=== PATIENT | male | born 1975 | race Caucasian/White ===

== ENCOUNTER → 2020-04-13 | Outpatient (CLI) | payer MEDICARE, MEDICAID ==
[2015-02-04 07:55] VITALS: BP 111/78
[~2020-04-13] MED LIST: PERM60CR11 TP
[2020-04-13 14:08] LABS: BARBITURATES NEG (NEG); BENZODIAZEPINES NEG (NEG); CANNABINOIDS NEG (NEG); COCAINE NEG (NEG); METHADONE NEG (NEG); OPIATES NEG (NEG); PHENCYCLIDINE NEG (NEG)
[2020-04-13 14:09] LABS: AMPHETAMINE/METHAMPHETAMINE NEG (NEG)
[2020-04-15 18:07] LABS: HCV ULTRA QUANT PCR 485000 IU/mL (.)
== END ==
LOC: LAB 11:25
PROVIDERS: ATTEND Internal Medicine Gastroenterology
DX: B19.20 Unspecified viral hepatitis C without hepatic coma (principal); E83.52 Hypercalcemia; Z91.19 Patient's noncompliance with other medical treatment and regimen
CPT/HCPCS: 36415; 80307; 86706; 87340; 87522; 87902

== ENCOUNTER → 2020-05-11 | Outpatient (CLI) | payer MEDICARE, MEDICAID ==
[2015-02-04 07:55] VITALS: BP 111/78
[~2020-05-11] MED LIST changes: +IOHEXOL 240 MG/ML 50ML VIAL. ONE; +IOHEXOL 300 MG/ML 75 ML VIAL. IV ONE; -PERM60CR11 TP
--- NOTE | 2020-05-11 14:48 | RAD ---
EXAM: CT Abdomen and Pelvis with IV contrast INDICATION: Reason: RIGHT LOWER ABD PAIN, HERNIA / Spl. Instructions: / History: TECHNIQUE: Multi-detector row CT images were acquired from the lung bases through the abdomen and pelvis with the use of IV contrast. Sagittal and coronal images were acquired from the transaxial data. All CT scans performed at this facility utilize dose optimization techniques as appropriate to the exam, including the following: Automated exposure control and adjustment of the mA and/or KV according to patient size (this includes techniques or standardized protocols for targeted exams where dose is indication/reason for exam). IV CONTRAST: Administered ORAL CONTRAST: Administered COMPARISON: None FINDINGS: LOWER CHEST: Unremarkable LIVER: Unremarkable BILIARY SYSTEM: Gallbladder is unremarkable. Bile ducts are not dilated. PANCREAS: Unremarkable SPLEEN: Unremarkable ADRENALS: Unremarkable KIDNEYS & URETERS: Unremarkable BLADDER: Unremarkable REPRODUCTIVE ORGANS: Unremarkable GASTROINTESTINAL: The stomach, small bowel, and colon are unremarkable. The appendix is normal. MESENTERY/PERITONEUM/RETROPERITONEUM: Unremarkable VASCULAR: Unremarkable LYMPH NODES: No adenopathy OSSEOUS & SOFT TISSUES: Bones are unremarkable. There is a fat and fluid containing right direct inguinal hernia best illustrated on coronal image 8 of series 3 and axial image 75 of series 2. This has a 1.5 cm wide neck. IMPRESSION: Small, 1.5 cm wide fat and fluid containing right direct inguinal hernia. Otherwise negative abdomen and pelvis CT Electronically signed by: Eugene Acosta MD (05/11/2020 2:45 PM) [id number]
== END ==
LOC: CT 08:46
PROVIDERS: ATTEND Internal Medicine Gastroenterology
DX: K40.90 Unilateral inguinal hernia, without obstruction or gangrene, not specified as recurrent (principal); K74.60 Unspecified cirrhosis of liver
CPT/HCPCS: 74177; Q9967

== ENCOUNTER 2020-07-18 09:15 | Emergency (ER) | payer MEDICARE, MEDICAID ==
[~2020-07-18] VITALS: Ht 180.3 cm; Wt 81.0 kg
[2020-07-18 09:21] VITALS: BP 146/79
[2020-07-18] MEDS ORDERED: PERM60CR11 TP (09:40)
--- NOTE | 2020-07-18 09:41 | PHYS DOC ---
Past History Past Medical History: Alcoholism, Bipolar, Schizophrenia, Other Additional Past Medical Histor: Hep C Past Surgical History: Other Additional Past Surgical Histo: Hernia Alcohol Use: Heavy Drug Use: Amphetamine, Marijuana, Methamphetamine General Adult EDM: Chief Complaint: MULTIPLE COMPLAINTS HPI: HPI: Patient is a 45-year-old male who is homeless, presented to ER for evaluation of bite on his head, alert and oriented body. Patient said he was staying at one of his friend how last week, he fell he was bitten by some insects. Patient said at night when he sleeps he feels like the insect crawling out of his skin. Patient denies suicidal ideation, denies homicidal ideation. Review of Systems: Review of Systems: Constitutional: Denies fever or chills Eyes: Denies change in visual acuity HENT: Denies nasal congestion or sore throat Respiratory: Denies cough or shortness of breath Cardiovascular: Denies chest pain or edema GI: Denies abdominal pain, nausea, vomiting, bloody stools or diarrhea : Denies dysuria Musculoskeletal: Denies back pain or joint pain Integument: Itchy skin rash Neurologic: Denies headache, focal weakness or sensory changes Endocrine: Denies polyuria or polydipsia Lymphatic: Denies swollen glands Psychiatric: Denies depression or anxiety Allergies: Allergies: Allergies Coded Allergies Type Severity Reaction Last Updated Verified risperidone Allergy Severe Swelling 02/04/15 No Physical Exam: PE: Constitutional: Well developed, well nourished, no acute distress, non-toxic appearance. [] HENT: Normocephalic, atraumatic, bilateral external ears normal, oropharynx moist, no oral exudates, nose normal. [] Eyes: PERRLA, EOMI, conjunctiva normal, no discharge. [] Neck: Normal range of motion, no tenderness, supple, no stridor. [] Cardiovascular:Heart rate regular rhythm, no murmur [] Lungs & Thorax: Bilateral breath sounds clear to auscultation [] Abdomen: Bowel sounds normal, soft, no tenderness, no masses, no pulsatile masses. [] Skin: Warm, dry, multiple scratch laird on neck, forehead, face, scalp bilateral hands and the inner part both knees. Back: No tenderness, no CVA tenderness. [] Extremities: No tenderness, no cyanosis, no clubbing, ROM intact, no edema. [] Neurologic: Alert and oriented X 3, normal motor function, normal sensory function, no focal deficits noted. [] Psychologic: Affect normal, judgement normal, mood normal. [] Current Patient Data: Vital Signs: Vital Signs Date Time Temp Pulse Resp B/P (MAP) Pulse Ox O2 Delivery O2 Flow Rate FiO2 07/18/20 09:21 98.1 100 20 146/79 (101) 99 Room Air EKG: EKG: [] Radiology/Procedures: Radiology/Procedures: [] Heart Score: Risk Factors: Risk Factors: DM, Current or recent (<one month) smoker, HTN, HLP, family history of CAD, obesity. Risk Scores: Score 0 - 3: 2.5% MACE over next 6 weeks - Discharge Home Score 4 - 6: 20.3% MACE over next 6 weeks - Admit for Clinical Observation Score 7 - 10: 72.7% MACE over next 6 weeks - Early Invasive Strategies Course & Med Decision Making: Course & Med Decision Making Pertinent Labs and Imaging studies reviewed. (See chart for details) [] Dragon Disclaimer: Dragon Disclaimer: This electronic medical record was generated, in whole or in part, using a voice recognition dictation system. Departure Departure: Impression: Primary Impression: Bed bug bite Disposition: 01 DC HOME SELF CARE/HOMELESS Condition: STABLE Referrals: PCP,NO (PCP) follow up with your doctor as needed Patient Instructions: Bedbugs Scripts Permethrin (ELIMITE) 60 Gm Cream..g. 1 TE TP ONCE for bedbugs, #60 GM 0 Refills massage into skin from head to soles of feet one time, leave on for 8-14 hour s then remove by thorough washing Prov: DIANN NELSON DO 07/18/20 DIANN NELSON DO Jul 18, 2020 09:41
== END 2020-07-18 09:47 | disposition home or self-care (01) ==
LOC: ER 09:15
DX: S10.91XA Abrasion of unspecified part of neck, initial encounter (principal); S00.81XA Abrasion of other part of head, initial encounter; S00.01XA Abrasion of scalp, initial encounter; S60.512A Abrasion of left hand, initial encounter; S60.511A Abrasion of right hand, initial encounter; S80.212A Abrasion, left knee, initial encounter; S80.211A Abrasion, right knee, initial encounter; F20.9 Schizophrenia, unspecified; F31.9 Bipolar disorder, unspecified; F10.20 Alcohol dependence, uncomplicated; Z88.8 Allergy status to other drugs, medicaments and biological substances; Y90.9 Presence of alcohol in blood, level not specified; W57.XXXA Bitten or stung by nonvenomous insect and other nonvenomous arthropods, initial encounter; Y93.89 Activity, other specified; Y92.89 Other specified places as the place of occurrence of the external cause; Y99.8 Other external cause status
CPT/HCPCS: 99282

== ENCOUNTER 2021-02-05 18:56 | Emergency (ER) | payer MEDICARE, MEDICAID ==
[~2021-02-05] VITALS: Ht 180.3 cm; Wt 78.0 kg
[~2021-02-05 18:56] MED LIST changes: -IOHEXOL 240 MG/ML 50ML VIAL. ONE; -IOHEXOL 300 MG/ML 75 ML VIAL. IV ONE; +PERM60CR11 TP
[2021-02-05 19:25] VITALS: BP 138/87
[2021-02-05] MEDS ORDERED: CEPHALEXIN 250 MG CAPSULE PO ONE (19:30)
[2021-02-05] MEDS ORDERED: CEPH500T PO (19:34)
--- NOTE | 2021-02-05 19:35 | PHYS DOC ---
Past History Past Medical History: Alcoholism, Bipolar, Schizophrenia, Other Additional Past Medical Histor: Hep C (RALEIGH SMITH APRN) Past Surgical History: Other Additional Past Surgical Histo: Hernia (RALEIGH SMITH APRN) Alcohol Use: Heavy Drug Use: Amphetamine, Marijuana, Methamphetamine (RALEIGH SMITH APRN) General Adult EDM: Chief Complaint: SKIN RASH/ABSCESS HPI: HPI: Patient is a 45-year-old male being seen in the ER for lesions to bilateral upper and lower extremities and face. Patient reports that these lesions started few days ago. He denies any exposures. He states that his friend told him that the lesions are because he does not shower. His rambling, he has an extensive psychiatric history, and admitted to meth use. Patient denies difficulty swallowing, shortness of breath, or fevers. (RALEIGH SMITH APRN) Review of Systems: Review of Systems: 14 body systems of the review of systems have been reviewed. See HPI for pertinent positive and negative responses, otherwise all other systems are negative, nonpertinent or noncontributory (RALEIGH SMITH APRN) Allergies: Allergies: Allergies Coded Allergies Type Severity Reaction Last Updated Verified risperidone Allergy Severe Swelling 02/04/15 No (RALEIGH SMITH APRN) Physical Exam: PE: Constitutional: Well developed, well nourished, no acute distress, non-toxic appearance, poor hygiene. [] HENT: Normocephalic, atraumatic, bilateral external ears normal, oropharynx moist, patient maintaining secretions, nose normal Eyes: PERRL, conjunctiva normal, no discharge. [] Neck: Normal range of motion, no stridor Cardiovascular: Normal peripheral perfusion Lungs & Thorax: Normal work of breathing, no tachypnea Skin: Warm, dry, several round papular lesions noted to bilateral upper and lower extremities as well as face. Several of the lesions have surrounding redness and warmth. It appears that patient has been scratching at the lesions as any of them have scabbing. Back: Normal range of motion Extremities: No tenderness, no cyanosis, no clubbing, ROM intact, no edema. [] Neurologic: Alert and oriented X 3, normal motor function, normal sensory function, no focal deficits noted. [] Psychologic: Affect normal, judgement normal, mood normal. [] (RALEIGH SMITH APRN) EKG: EKG: [] (RALEIGH SMITH APRN) Radiology/Procedures: Radiology/Procedures: [] (RALEIGH SMITH APRN) Heart Score: C/O Chest Pain: No Risk Factors: Risk Factors: DM, Current or recent (<one month) smoker, HTN, HLP, family history of CAD, obesity. Risk Scores: Score 0 - 3: 2.5% MACE over next 6 weeks - Discharge Home Score 4 - 6: 20.3% MACE over next 6 weeks - Admit for Clinical Observation Score 7 - 10: 72.7% MACE over next 6 weeks - Early Invasive Strategies (RALEIGH SMITH APRN) Course & Med Decision Making: Course & Med Decision Making Pertinent Labs and Imaging studies reviewed. (See chart for details) [] Patient is a 45-year-old male being seen in the ER for lesions to his bilateral upper, lower extremities and face. Patient admitted to methamphetamine use, it is likely that these lesions are picks as several of them are bleeding although patient denies picking at the lesions. Several of the lesions have surrounding redness and warmth, there is no streaking around these lesions. Patient is maintaining secretions, he is not hypoxic, nonlabored breathing and in no acute distress, afebrile. Patient treated with his first dose of an antibiotic in the ER. Patient discharged home with a prescription for an antibiotic. Patient advised to follow-up with his primary care provider. I discussed with patient all findings as well as the need to follow-up with PCP for further evaluation and treatment or return to the ER if any new or worsening symptoms. Strict return precautions were also discussed at length. Patient voiced understanding and agreement with the plan. Patient is hemodynamically stable at the time of disposition. (RALEIGH SMITH APRN) Dragon Disclaimer: Dragon Disclaimer: This electronic medical record was generated, in whole or in part, using a voice recognition dictation system. (RALEIGH SMITH APRN) Departure Departure: Impression: Primary Impression: Cellulitis Qualified Codes: L03.119 - Cellulitis of unspecified part of limb Disposition: HOME / SELF CARE / HOMELESS Condition: GOOD Referrals: PCP,NO (PCP) Patient Instructions: Skin Infections Additional Instructions: You were seen in the ER for lesions to your body. Several of the lesions have surrounding redness and warmth consistent with a skin infection. Keep these lesions clean and dry. You were treated with your first dose of an antibiotic in the ER. You are being discharged home with a prescription for antibiotic. Please start and finish it completely. You can take Tylenol/ibuprofen for any pain at home. Please stop picking at these lesions. Please follow-up with your primary care provider tomorrow regarding your ER visit. You can return to the ER if you develop worsening of your rash, difficulty swallowing, shortness of breath, fevers refractory to treatment. EMERGENCY DEPARTMENT GENERAL DISCHARGE INSTRUCTIONS Thank you for coming to [facility] (ED) today and trusting us with you care. We trust that you had a positivie experience in our Emergency Department. If you wish to speak to the department management, you may call the director at [phone]. YOUR FOLLOW UP INSTRUCTIONS ARE FOLLOWS: 1. Do you have a private Doctor? If you do not have a private doctor, please ask for a resource list of physicians or clinics that may be able to assist you with follow up care. 2. The Emergency Physician has interpreted your x-rays. The X-Ray specialist will also review them. If there is a change in the findings, you will be notified in 48 hours when at all possible. 3. A lab test or culture has been done, your results will be reviewed and you will be notified if you need a change in treatment. ADDITIONAL INSTRUCTIONS AND INFORMATION: 1. Your care today has been supervised by a physician who is specially trained in emergency care. Many problems require more than one evaluation for a complete diagnosis and treatment. We recommend that you schedule your follow up appointment as recommended to ensure complete treatment of you illness or injury. If you are unable to obtain follow up care and continue to have a problem, or if your condition worsens, we recommend that you return to the ED. 2. We are not able to safely determine your condition over the phone nor are we able to give sound medical advice over the phone. For these safety reasons, if you call for medical advice we will ask you to come to the ED for further evaluation. 3. If you have any questions regarding these discharge instructions please call the ED at [phone]. SAFETY INFORMATION: In the interest of safety, wellness, and injury prevention; we encourage you to wear your sealbelt, if you smoke; quite smoking, and we encourage family to use a protective helmet for bicycling and other sporting events that present an increased risk for head injury. IF YOUR SYMPTOMS WORSEN OR NEW SYMPTOMS DEVELOP, OR YOU HAVE CONCERNS ABOUT YOUR CONDITION; OR IF YOUR CONDITION WORSENS WHILE YOU ARE WAITING FOR YOUR FOLLOW UP A PPOINTMENT; EITHER CONTACT YOUR PRIMARY CARE DOCTOR, THE PHYSICIAN WHOSE NAME AND NUMBER YOU WERE GIVEN, OR RETURN TO THE ED IMMEDIATELY. Scripts Cephalexin (CEPHALEXIN) 500 Mg Tablet 1 TAB PO QID for cellulitis for 5 Days, #20 TAB 0 Refills Prov: RALEIGH SMITH [employer] LIAISON 02/05/21 Attending Signature Attending Signature I have reviewed the PA/SPECIAL DELIVERY CLERK's note and plan of care. I was available for consultation as needed during the patient's visit in the emergency department. I agree with the clinical impression, plan, and disposition. (YENY COX DO) RALEIGH SMITH APRN Feb 05, 2021 19:35 YENY COX DO Feb 05, 2021 20:56
== END 2021-02-05 19:46 | disposition home or self-care (01) ==
LOC: ER 18:56
DX: L03.116 Cellulitis of left lower limb (principal); L03.115 Cellulitis of right lower limb; L03.114 Cellulitis of left upper limb; L03.113 Cellulitis of right upper limb; L03.211 Cellulitis of face; F10.20 Alcohol dependence, uncomplicated; F31.9 Bipolar disorder, unspecified; F20.9 Schizophrenia, unspecified; F15.10 Other stimulant abuse, uncomplicated; F12.10 Cannabis abuse, uncomplicated; Z88.8 Allergy status to other drugs, medicaments and biological substances; Y90.9 Presence of alcohol in blood, level not specified
CPT/HCPCS: 99283